=== PATIENT | female | born 1995 | race African-American/Black ===

== ENCOUNTER 2017-07-06 10:42 | Emergency (ER) | payer OTHER | END 2017-07-06 12:04 | disposition left against medical advice (07) | LOC: ERS 10:42 | DX: Z53.21 Procedure and treatment not carried out due to patient leaving prior to being seen by health care provider (principal) ==

== ENCOUNTER 2018-05-03 17:28 | Emergency (ER) | payer OTHER, SELFPAY ==
[2018-05-03 18:20] LABS: Bilirubin Negative (Negative); Blood, Urine Negative (Negative); Glucose, Urine (Dipstick) Negative (Negative); Leukocyte Negative (Negative); Nitrite Negative (Negative); Protein, Urine (Dipstick) Negative (Neg-Trace); Specific Gravity, Urine 1.015 (1.005-1.030); Urobilinogen 0.2 mg/dL (0.2-1.0)
[2018-05-03 18:21] LABS: Clarity Clear (Clear)
[2018-05-06 08:59] LABS: Chlamydia by PCR Not Detected (NotDetected); GC by PCR DETECTED (NotDetected)
== END 2018-05-03 20:20 | disposition home or self-care (01) ==
LOC: ERS 17:28
DX: N76.0 Acute vaginitis (principal)
CPT/HCPCS: 81003; 87480; 87491; 87510; 87591; 87660; 99283

== ENCOUNTER → 2018-05-07 | Day surgery (SDC) | payer SELFPAY ==
[~2018-05-07] MED LIST: Azithromycin 250 MG TAB ONE; Lidocaine 1% PF 5 ML VIAL ONE; cefTRIAXone\\ROCEPHIN 250 MG VIAL ONE
== END ==
LOC: ER/OP 17:13
DX: Z29.8 Encounter for other specified prophylactic measures (principal); Z79.899 Other long term (current) drug therapy

== ENCOUNTER 2019-07-10 08:38 | Emergency (ER) | payer SELFPAY ==
[2019-07-10] MEDS ORDERED: Fluorescein Opthalmic Strip ONE (09:58)
[2019-07-10] MEDS ORDERED: Proparacaine 0.5% Opth 15 ML BOT ONE (10:01)
== END 2019-07-10 10:28 | disposition home or self-care (01) ==
LOC: ERS 08:38
DX: H10.9 Unspecified conjunctivitis (principal)
CPT/HCPCS: 99283

== ENCOUNTER 2022-02-08 12:27 | Emergency (ER) | payer SELFPAY ==
[2022-02-08] MEDS ORDERED: cefTRIAXone\\ROCEPHIN 500 MG VIAL ONE (14:48)
[2022-02-08] MEDS ORDERED: Lidocaine 1% MPF 2 ML VIAL ONE (14:53)
[2022-02-11 14:10] LABS: Chlamydia by PCR Not Detected (NotDetected); GC by PCR Not Detected (NotDetected)
== END 2022-02-08 15:30 | disposition home or self-care (01) ==
LOC: ERS 12:27
DX: Z20.2 Contact with and (suspected) exposure to infections with a predominantly sexual mode of transmission (principal); R30.0 Dysuria
CPT/HCPCS: 87491; 87591; 87661; 96372; 99283; J0696

== ENCOUNTER 2023-09-15 14:34 | Outpatient (CLI) | payer OTHER | END 2023-09-15 14:35 | disposition home or self-care (01) | LOC: BICULT 14:34 | PROVIDERS: ATTEND Family Medicine | DX: O09.892 Supervision of other high risk pregnancies, second trimester (principal); Z3A.23 23 weeks gestation of pregnancy | CPT/HCPCS: 76805 ==